=== PATIENT | male | born 1950 | race American Indian/Alaskan Native ===

== ENCOUNTER 2017-02-11 14:56 | Emergency (ER) | payer OTHER ==
[2017-02-11] MEDS ORDERED: TYLENOL PO ONE (18:05)
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
[2017-02-11 20:17] VITALS: BP 116/76
== END 2017-02-11 20:17 | disposition home or self-care (01) ==
LOC: ED 14:56
DX: M25.561 Pain in right knee (principal); M25.562 Pain in left knee; M54.5 Low back pain; I10 Essential (primary) hypertension; E78.00 Pure hypercholesterolemia, unspecified; V49.59XA Passenger injured in collision with other motor vehicles in traffic accident, initial encounter; Y93.89 Activity, other specified; Y92.89 Other specified places as the place of occurrence of the external cause; Y99.8 Other external cause status
CPT/HCPCS: 72100; 99283